=== PATIENT | male | born 1975 | race Caucasian/White ===

== ENCOUNTER 2019-01-10 00:43 | Emergency (ER) | payer SELFPAY ==
[2019-01-10] MEDS ORDERED: Albuterol 2.5 MG/3 ML NEB.SOL* (0.083%) INH ONE (01:10)
[2019-01-10] MEDS ORDERED: Albuterol/Ipratropium NEB.SOL* Albuterol 2.5 MG/Ipratropium 0.5 MG 3 ML INH ONE (01:10)
--- NOTE | 2019-01-10 01:19 | ED ---
Shortness of Breath - HPI Summary HPI Summary: This patient is 43 year old M presenting to [facility] with a chief complaint of SOB since two hours ago while sitting and watching TV. The patient rates the pain 0/ 10 in severity. Symptoms aggravated by nothing. Symptoms alleviated by nothing. Patient reports tightness in his chest. Patient denies cough, fever, pain. Patient denies hx of anxiety and panic attacks. He notes he smokes cigars. Patient has hx HTN. He has previously taken HTN medication but stopped taking 4 months ago. - History of Current Complaint Chief Complaint: EDShortnessOfBreath Time Seen by Provider: 01/10/19 01:06 Hx Obtained From: Patient Onset/Duration: Sudden Onset, Lasting Hours - 2, Still Present Current Severity: None Aggravating Factors: Nothing Alleviating Factors: Nothing Associated Signs & Symptoms: Negative - cough, fever, pain - Allergy/Home Medications Allergies/Adverse Reactions: Allergies Allergy/AdvReac Type Severity Reaction Status Date / Time No Known Allergies Allergy Verified 01/10/19 00:48 PMH/Surg Hx/FS Hx/Imm Hx Previously Healthy: No Endocrine/Hematology History: Denies: Hx Diabetes Cardiovascular History: Reports: Hx Hypertension Respiratory History: Denies: Hx Chronic Obstructive Pulmonary Disease (COPD) - Surgical History Surgery Procedure, Year, and Place: none reported Infectious Disease History: No Infectious Disease History: Denies: Traveled Outside the [place] in Last 30 Days - Family History Known Family History: Negative: Cardiac Disease, Respiratory Disease - Social History Alcohol Use: Daily Hx Substance Use: No Substance Use Type: Reports: None Hx Tobacco Use: Yes Smoking Status (MU): Former Smoker Review of Systems Negative: Fever Positive: Other - chest tightness Positive: Shortness Of Breath. Negative: Cough All Other Systems Reviewed And Are Negative: Yes Physical Exam - Summary Physical Exam Summary: VITAL SIGNS: Reviewed. GENERAL: Patient is a well-developed and nourished MALE who is lying comfortable in the stretcher. Patient is not in any acute respiratory distress. Patient seems somewhat anxious HEAD AND FACE: No signs of trauma. No ecchymosis, hematomas or skull depressions. No sinus tenderness. EYES: PERRLA, EOMI x 2, No injected conjunctiva, no nystagmus. EARS: Hearing grossly intact. Ear canals and tympanic membranes are within normal limits. MOUTH: Oropharynx within normal limits. NECK: Supple, trachea is midline, no adenopathy, no JVD, no carotid bruit, no c- spine tenderness, neck with full ROM CHEST: Symmetric, no tenderness at palpation LUNGS: Minimal breath sounds bilaterally. No wheezing or crackles. CVS: Regular rate and rhythm, S1 and S2 present, no murmurs or gallops appreciated. ABDOMEN: Soft, non-tender. No signs of distention. No rebound no guarding, and no masses palpated. Bowel sounds are normal. EXTREMITIES: FROM in all major joints, no edema, no cyanosis or clubbing. NEURO: Alert and oriented x 3. No acute neurological deficits. Speech is normal and follows commands. SKIN: Dry and warm Triage Information Reviewed: Yes Vital Signs On Initial Exam: Initial Vitals Temp Pulse Resp BP Pulse Ox 97.0 F 98 16 188/112 98 01/10/19 00:45 01/10/19 00:45 01/10/19 00:45 01/10/19 00:45 01/10/19 00:45 Vital Signs Reviewed: Yes Diagnostics - Vital Signs Vital Signs Temp Pulse Resp BP Pulse Ox 01/10/19 00:45 97.0 F 98 16 188/112 98 - Laboratory Result Diagrams: 01/10/19 01:27 01/10/19 01:27 Lab Statement: Any lab studies that have been ordered have been reviewed, and results considered in the medical decision making process. - Radiology Chest X-Ray Radiology Interpretation Completed By: ED Physician Summary of Radiographic Findings: no acute process. Pending official report. - EKG 0152 Cardiac Rate: Tachycardia - 103 BPM EKG Rhythm: Sinus Rhythm Summary of EKG Findings: Sinus rhythm, 103 BPM, non-specific T wave change. Re-Evaluation - Re-Evaluation First Eval Re-Evaluation Time: 02:40 Change: Improved Comment: Patient feels better after medications. Patient's blood pressure has improved. Discussed discharge plan. Patient is agreeable to discharge. Course/Dx - Course Course Of Treatment: This patient is 43 year old M presenting to [facility] with a chief complaint of SOB since two hours ago while sitting and watching TV. The patient rates the pain 0/10 in severity. Patient reports tightness in his chest. Patient denies coughing, fever, pain. Patient denies hx of anxiety and panic attacks. He notes he smokes cigars. Patient has hx HTN. Physical exam shows minimal breath sounds bilaterally and patient is somewhat anxious. Chest x-ray impression: no acute process. EKG results: Sinus rhythm, 103 BPM, non- specific T wave change. During ED course, the patient was given Albuterol, Ativan, and Xanax. Patient's blood work is negative, including d-dimer which is negative. Patient's symptoms seem to be secondary to anxiety. Patient feels better after treatment. Patient's blood pressure improved in ED. Patient was instructed to follow up with PCP and to return to ED for new or worsening symptoms. Patient understands and is agreeable. - Diagnoses Provider Diagnoses: Anxiety, Shortness of breath Discharge - Sign-Out/Discharge Documenting (check all that apply): Patient Departure - discharge Patient Received Moderate/Deep Sedation with Procedure: No - Discharge Plan Condition: Stable Disposition: HOME Patient Education Materials: Anxiety (ED), Shortness of Breath (ED) Referrals: [facility] [place] PHYSICIAN REFERRAL [Outside] - 3 Days Additional Instructions: Follow up with your primary care provider in 3 days. Return to the Emergency Department for new or worsening symptoms. - Attestation Statements Document Initiated by Scribe: Yes Documenting Scribe: Andreia Baltazar Provider For Whom Scribe is Documenting (Include Credential): Adair Downs MD Scribe Attestation: Andreia Prabhakar, scribed for Adair Downs MD on 01/10/19 at 0412. Status of Scribe Document: Ready
[2019-01-10 01:49] LABS: Activated Partial Thrombo Time 29.8 seconds (26.0-38.0); INR 0.95 (0.82-1.09)
[2019-01-10 01:50] LABS: ABS Basophils 0.1 10^3/ul (0-0.2); ABS Eosinophils 0.4 10^3/ul (0-0.6); ABS Lymphocytes 2.3 10^3/ul (1.0-4.8); ABS Monocytes 0.9 10^3/ul (0-0.8); ABS Neutrophils 4.9 10^3/ul (1.5-7.7); Eosinophil % 4.8 %; Hematocrit 45 % (42-52); Hemoglobin 15.9 g/dL (14.0-18.0); Lymphocyte % 26.5 %; Mean Corpuscular HGB Conc 36 g/dL (31-36); Mean Corpuscular Hemoglobin 32 pg (27-31); Mean Corpuscular Volume 91 fL (80-94); Mean Platelet Volume 9.4 fL (7.4-10.4); Nucleated Red Blood Cells % 0.1; Platelet Count 187 10^3/uL (150-450); Red Blood Count 4.93 10^6 /uL (4.18-5.48); Red Cell Distribution Width 13 % (10-15); White Blood Count 8.5 10^3/uL (3.5-10.8)
[2019-01-10 01:58] LABS: Albumin 4.4 g/dL (3.2-5.2); Albumin/Globulin Ratio 1.5 (1-3); BUN/Creatinine Ratio 15.4 (8-20); C Reactive Protein 2.46 mg/L (<8.01); Calcium 9.6 mg/dL (8.6-10.3); EGFR African American 93.9 (>60); EGFR Non-African American 77.6 (>60); Total Bilirubin 0.4 mg/dL (0.2-1.0); Total Protein 7.4 g/dL (6.4-8.9)
[2019-01-10] MEDS ORDERED: LORazepam INJ* 2 MG/ML 1 ML VIAL IV PUSH ONE (01:58)
[2019-01-10] MEDS ORDERED: Lorazepam PYXIS KEY PRN (01:58)
[2019-01-10] MEDS ORDERED: ALPRAZolam TAB* 0.5 MG PO ONE (02:40)
[2019-01-10] MEDS ORDERED: Albuterol HFA INHALER* 8 gm MDI INH SCH (03:00)
[2019-01-10 03:24] VITALS: BP 152/86
== END 2019-01-10 03:27 | disposition home or self-care (01) ==
LOC: ED 00:43
DX: F41.9 Anxiety disorder, unspecified (principal); R06.02 Shortness of breath; R07.89 Other chest pain; R00.0 Tachycardia, unspecified; Z87.891 Personal history of nicotine dependence
CPT/HCPCS: 36415; 71045; 80053; 83880; 84484; 85025; 85379; 85610; 85730; 86140; 87040; 93005; 99283; A9270-GY

== ENCOUNTER 2019-02-19 17:11 | Emergency (ER) | payer SELFPAY ==
--- NOTE | 2019-02-19 18:55 | ED ---
Psychiatric Complaint - HPI Summary HPI Summary: This patient is a 44 year old M [place] [facility] with a chief complaint of anxiety since 2 days ago. Pt states he came to [facility] [place] ago for SOB and was diagnosed with anxiety. He currently does not take any medications for anxiety. Pt reports tightening in his arms and shoulders, as well as body tingling. The pt rates the pain 0/10 in severity. Symptoms aggravated by nothing. Symptoms alleviated by nothing. - History Of Current Complaint Chief Complaint: EDPsychosocial Time Seen by Provider: 02/19/19 18:03 Hx Obtained From: Patient Onset/Duration: Sudden Onset, Lasting Days - 2, Still Present Timing: Days - 2 Character: Anxious Aggravating Factor(s): Nothing Alleviating Factor(s): Nothing Associated Signs And Symptoms: Positive: Negative - Allergies/Home Medications Allergies/Adverse Reactions: Allergies Allergy/AdvReac Type Severity Reaction Status Date / Time No Known Allergies Allergy Verified 01/10/19 00:48 PMH/Surg Hx/FS Hx/Imm Hx Previously Healthy: No Endocrine/Hematology History: Denies: Hx Diabetes Cardiovascular History: Reports: Hx Hypertension Respiratory History: Denies: Hx Chronic Obstructive Pulmonary Disease (COPD) Psychiatric History: Reports: Hx Anxiety - Surgical History Surgical History: None Surgery Procedure, Year, and Place: none reported - Immunization History Immunizations Up to Date: Yes Infectious Disease History: No Infectious Disease History: Denies: Traveled Outside the [place] in Last 30 Days - Family History Known Family History: Negative: Cardiac Disease, Respiratory Disease - Social History Alcohol Use: Daily Hx Substance Use: No Substance Use Type: Reports: None Hx Tobacco Use: Yes Smoking Status (MU): Former Smoker Review of Systems Musculoskeletal: Other - positive - tightening in his arms and shoulders Neurological: Other - positive - body tingling Positive: Anxious All Other Systems Reviewed And Are Negative: Yes Physical Exam - Summary Physical Exam Summary: Appearance: The patient is well-nourished in no acute distress and in no acute pain. Skin: The skin is warm and dry and skin color reflects adequate perfusion. HEENT: The head is normocephalic and atraumatic. The pupils are equal and reactive. The conjunctivae are clear and without drainage. Nares are patent and without drainage. Mouth reveals moist mucous membranes and the throat is without erythema and exudate. The external ears are intact. The ear canals are patent and without drainage. The tympanic membranes are intact. Neck: The neck is supple with full range of motion and non-tender. There are no carotid bruits. There is no neck vein distension. Respiratory: Chest is non-tender. Lungs are clear to auscultation and breath sounds are symmetrical and equal. Cardiovascular: Heart is regular rate and rhythm. There is no murmur or rub auscultated. There is no peripheral edema and pulses are symmetrical and equal. Abdomen: The abdomen is soft and non-tender. There are normal bowel sounds heard in all four quadrants and there is no organomegaly palpated. Musculoskeletal: There is no back tenderness noted. Extremities are non-tender with full range of motion. There is good capillary refill. There is no peripheral edema or calf tenderness elicited. Neurological: Patient is alert and oriented to person, place and time. The patient has symmetrical motor strength in all four extremities. Cranial nerves are grossly intact. Deep tendon reflexes are symmetrical and equal in all four extremities. Psychiatric: The patient has an appropriate affect and does not exhibit any anxiety or depression. Triage Information Reviewed: Yes Vital Signs On Initial Exam: Initial Vitals Temp Pulse Resp BP Pulse Ox 98.0 F 115 18 145/120 99 02/19/19 17:13 02/19/19 17:13 02/19/19 17:13 02/19/19 17:13 02/19/19 17:13 Vital Signs Reviewed: Yes Diagnostics - Vital Signs Vital Signs Temp Pulse Resp BP Pulse Ox 02/19/19 17:13 98.0 F 115 18 145/120 99 - Laboratory Lab Statement: Any lab studies that have been ordered have been reviewed, and results considered in the medical decision making process. Course/Dx - Course Course Of Treatment: Mr. Little was seen here and worked up for vague symptomatology of left-sided pain and shortness of breath. He was told that it was anxiety and offered medication which she refused. At the time he felt that he did not want to take medicines. Environmental factors including the eminent of his grandchild have made him more anxious and he comes in essentially asking for anxiety medication. He apparently has no PCP. He is not concerned about another workup but merely states that he now knows this is anxiety. I offered to start him on an anxiety medication and [facility]. He was willing to do that. After discharge his called and requested that he have something that would work more immediately than the Zoloft that I prescribed. She reported that if he can get through the next few days the stress level go down. I spoke with Dr. Downs who saw him initially and felt that it was reasonable to give him some anxiolytics. I gave him a prescription for Xanax. - Differential Dx/Clinical Impression Provider Diagnosis: Anxiety Discharge - Sign-Out/Discharge Documenting (check all that apply): Patient Departure - discharge Patient Received Moderate/Deep Sedation with Procedure: No - Discharge Plan Condition: Stable Disposition: HOME Prescriptions: ALPRAZolam TAB* [Xanax TAB*] 0.25 mg PO Q8H PRN #20 tab MDD 3 PRN Reason: Anxiety Sertraline* [Zoloft*] 25 mg PO DAILY #10 tab Patient Education Materials: Anxiety (ED) Referrals: No Primary Care Phys,NOPCP [Primary Care Provider] - [facility] [Outside] - 2 Days Additional Instructions: Follow up with a primary care provider within 2-3 days. Return to the ED for any new or worsening symptoms. - Billing Disposition and Condition Condition: STABLE Disposition: Home - Attestation Statements Document Initiated by Scribe: Yes Documenting Scribe: Usman Culp Provider For Whom Bertha is Documenting (Include Credential): Dr. Chapito Edwards MD Scribe Attestation: Usman Prabhakar, scribed for Dr. Chapito Edwards MD on 02/19/19 at 2142. Scribe Documentation Reviewed: Yes Provider Attestation: The documentation as recorded by the Usman carson accurately reflects the service I personally performed and the decisions made by me, Dr. Chapito Edwards MD Status of Scribe Document: Viewed
[2019-02-19 19:21] VITALS: BP 141/72
== END 2019-02-19 19:19 | disposition home or self-care (01) ==
LOC: ED 17:11
DX: F41.9 Anxiety disorder, unspecified (principal); I10 Essential (primary) hypertension; Z87.891 Personal history of nicotine dependence
CPT/HCPCS: 99282

== ENCOUNTER 2019-06-19 10:31 | Emergency (ER) | payer SELFPAY ==
--- NOTE | 2019-06-19 10:51 | ED ---
Lower Extremity - HPI Summary HPI Summary: Patient is a 44 y/o M presenting to the ED for a chief complaint of left ankle pain and swelling. Patient states he rolled his ankle 3-4 days ago and has since had the pain, swelling, and erythema of the left ankle. On triage, patient rates the pain as 8/10 in severity. Patient is able to bear weight, but has pain when doing so. He reports no relief with Tylenol. Patient denies any significant PMHx, PSHx, or FMHx. He denies tobacco or drug use, but admits occasional alcohol use. - History of Current Complaint Chief Complaint: EDExtremityLower Stated Complaint: LEFT FOOT INJURY PER PT Time Seen by Provider: 06/19/19 10:42 Hx Obtained From: Patient Mechanism Of Injury: Twisted Onset of Pain: Immediate Onset/Duration: Still Present - 3-4 days Severity Initially: Severe Severity Currently: Severe Pain Intensity: 8 Pain Scale Used: 0-10 Numeric Timing: Constant Location: Is Discrete @ - Left ankle Character Of Pain: Unable To Describe Associated Signs And Symptoms: Positive: Swelling, Redness, Other - Left ankle pain Aggravating Factor(s): Nothing Alleviating Factor(s): OTC Meds - No relief with Tylenol Able to Bear Weight: Yes - Allergies/Home Medications Allergies/Adverse Reactions: Allergies Allergy/AdvReac Type Severity Reaction Status Date / Time No Known Allergies Allergy Verified 06/19/19 10:36 Home Medications: Home Medications Lisinopril TAB* [Prinivil TAB 5 MG*] 1 tab PO DAILY 06/19/19 [History Confirmed 06/19/19] PMH/Surg Hx/FS Hx/Imm Hx Previously Healthy: Yes Endocrine/Hematology History: Denies: Hx Diabetes Cardiovascular History: Reports: Hx Hypertension Denies: Hx Hypercholesterolemia Respiratory History: Denies: Hx Chronic Obstructive Pulmonary Disease (COPD) Sensory History: Denies: Hx Legally Blind, Hx Deafness Opthamlomology History: Denies: Hx Legally Blind EENT History: Denies: Hx Deafness Psychiatric History: Reports: Hx Anxiety - Surgical History Surgical History: None Surgery Procedure, Year, and Place: none reported Infectious Disease History: No Infectious Disease History: Denies: Traveled Outside the [place] in Last 30 Days - Family History Known Family History: Negative: Cardiac Disease, Respiratory Disease - Social History Occupation: Works From/At Home Lives: With Family Alcohol Use: Occasionally Hx Substance Use: No Substance Use Type: Reports: None Hx Tobacco Use: Yes Smoking Status (MU): Former Smoker Review of Systems Positive: Arthralgia - Left ankle, Edema - Left ankle Positive: Other - Positive erythema of left ankle All Other Systems Reviewed And Are Negative: Yes Physical Exam - Summary Physical Exam Summary: VITAL SIGNS: Reviewed. GENERAL: Patient is a well-developed and nourished MALE who is lying comfortable in the stretcher. Patient is not in any acute respiratory distress. HEAD AND FACE: No signs of trauma. No ecchymosis, hematomas or skull depressions. No sinus tenderness. EYES: PERRLA, EOMI x 2, No injected conjunctiva, no nystagmus. EARS: Hearing grossly intact. Ear canals and tympanic membranes are within normal limits. MOUTH: Oropharynx within normal limits. NECK: Supple, trachea is midline, no adenopathy, no JVD, no carotid bruit, no c- spine tenderness, neck with full ROM. CHEST: Symmetric, no tenderness at palpation. LUNGS: Clear to auscultation bilaterally. No wheezing or crackles. CVS: Regular rate and rhythm, S1 and S2 present, no murmurs or gallops appreciated. ABDOMEN: Soft, non-tender. No signs of distention. No rebound, no guarding, and no masses palpated. Bowel sounds are normal. EXTREMITIES: FROM in all major joints, no cyanosis or clubbing. Swollen and tender left lateral aspect of the foot, good pulses and good capillary refill. NEURO: Alert and oriented x 3. No acute neurological deficits. Speech is normal and follows commands. SKIN: Dry and warm. Triage Information Reviewed: Yes Vital Signs On Initial Exam: Initial Vitals Temp Pulse Resp BP Pulse Ox 97 F 86 16 181/105 7 06/19/19 10:33 06/19/19 10:33 06/19/19 10:33 06/19/19 10:33 06/19/19 10:33 Vital Signs Reviewed: Yes Procedures - Sedation Patient Received Moderate/Deep Sedation with Procedure: No Diagnostics - Vital Signs Vital Signs Temp Pulse Resp BP Pulse Ox 06/19/19 10:33 97 F 86 16 181/105 7 - Laboratory Lab Statement: Any lab studies that have been ordered have been reviewed, and results considered in the medical decision making process. - Radiology Foot X-ray Radiology Interpretation Completed By: Radiologist Summary of Radiographic Findings: Foot X-ray IMPRESSION: THERE IS NO RADIOGRAPHICALLY APPARENT ACUTE FRACTURE OR DISLOCATION INVOLVING. THE LEFT FOOT OR ANKLE. Reviewed by Dr. Ocampo. Ankle X-ray Radiology Interpretation Completed By: Radiologist Summary of Radiographic Findings: Ankle X-ray IMPRESSION: THERE IS NO RADIOGRAPHICALLY APPARENT ACUTE FRACTURE OR DISLOCATION INVOLVING. THE LEFT FOOT OR ANKLE. Reviewed by Dr. Ocampo. Lower Extremity Course/Dx - Course Assessment/Plan: The patient is a 44-year-old male who presents to the emergency department with a chief complaint of left ankle pain. He reports that he rolled his ankle about 3 days ago and has since been having pain. X-ray of the left foot and ankle impression: No radiographically apparent acute fracture or dislocation involving the left foot or ankle. Therefore I believe that the patient has a foot and ankle sprain. The patient will be placed in a boot cam. He was discharged home to follow-up with his primary care physician in 2-3 days. - Diagnoses Provider Diagnoses: Ankle sprain, Foot sprain Discharge ED - Sign-Out/Discharge Documenting (check all that apply): Patient Departure - Discharge - Discharge Plan Condition: Stable Disposition: HOME Patient Education Materials: Ankle Sprain (ED) Referrals: [facility] [Outside] Additional Instructions: FOLLOW UP WITH YOUR PRIMARY CARE PROVIDER WITHIN 3 DAYS FOR HIGH BLOOD PRESSURE NOTED TODAY. RETURN TO THE ED FOR ANY WORSENING OR NEW SYMPTOMS. - Billing Disposition and Condition Condition: STABLE Disposition: Home - Attestation Statements Document Initiated by Bertha: Yes Documenting Alfonsoibclarisse: Nell Diaz Provider For Whom Bertha is Documenting (Include Credential): Bogdan Ocampo MD Scribe Attestation: Nell Prabhakar scribed for Bogdan Ocampo MD on 06/19/19 at 2104. Scribe Documentation Reviewed: Yes Provider Attestation: The documentation as recorded by the Nell carson accurately reflects the service I personally performed and the decisions made by me, Bogdan Ocampo MD Status of Scribe Document: Viewed
[2019-06-19 11:49] VITALS: BP 155/100
== END 2019-06-19 11:48 | disposition home or self-care (01) ==
LOC: ED 10:31
DX: S93.402A Sprain of unspecified ligament of left ankle, initial encounter (principal); S93.602A Unspecified sprain of left foot, initial encounter; X50.1XXA Overexertion from prolonged static or awkward postures, initial encounter; Y92.9 Unspecified place or not applicable; I10 Essential (primary) hypertension; Z87.891 Personal history of nicotine dependence
CPT/HCPCS: 99282